=== PATIENT | male | born 1985 | race Caucasian/White ===

== ENCOUNTER 2018-03-28 03:39 | Emergency (ER) | payer BC ==
[~2018-03-28] VITALS: Ht 177.8 cm; Wt 75.5 kg
[2018-03-28 03:42] VITALS: BP 135/88
[2018-03-28] MEDS ORDERED: DIPH,PERTUSS(ACELL),TET VAC/PF 0.5 ML IM-VACC ONE ×2 (03:53→04:00)
[2018-03-28] MEDS ORDERED: IBUPROFEN 200 MG TABLET PO ONE (04:30)
[2018-03-28] MEDS ORDERED: CEFAZOLIN 1,000 MG IM ONE (04:30)
[2018-03-28] MEDS ORDERED: HYDROcodone/APAP 5/325 TABLET PO ONE (04:30)
== END 2018-03-28 05:02 | disposition home or self-care (01) ==
LOC: ED 04:56
DX: S91.011A Laceration without foreign body, right ankle, initial encounter (principal); L03.115 Cellulitis of right lower limb; Z88.0 Allergy status to penicillin; W26.0XXA Contact with knife, initial encounter; Y93.89 Activity, other specified; Y92.098 Other place in other non-institutional residence as the place of occurrence of the external cause; Y99.8 Other external cause status
CPT/HCPCS: 90471; 90715; 96372; 99284; J0690